=== PATIENT | female | born 1990 | race Caucasian/White ===

== ENCOUNTER → 2018-08-29 | Outpatient (CLI) | payer OTHER ==
[~2018-08-29] MED LIST: ONDA4TAB5 PO; OXYC1TAB23 PO; PREN1TAB11 PO; SING10TA32 PO
[2018-08-29 16:44] LABS: GLUCOSE CHALLENGE TEST 1 HOUR 107 MG/DL (LESS THAN 140)
[2018-08-29 17:10] LABS: RUBELLA IgG QUALITATIVE IMMUNE (IMMUNE)
[2018-08-29 17:15] LABS: BASO % 0.2 % (0.0-1.0); EOS # 0.3 10^3/uL (0.0-0.50); EOS % 2.5 % (0.0-3.0); HEMATOCRIT 38.3 % (36.0-47.0); HEMOGLOBIN 12.7 g/dl (12.0-15.5); LYMPH # 2.2 10^3/uL (1.5-6.5); LYMPH % 16.6 % (24.0-44.0); MEAN CORPUSCULAR HEMOGLOBIN 30.5 pg (27.0-33.0); MEAN CORPUSCULAR HGB CONC 33.2 g/dl (32.0-36.5); MEAN CORPUSCULAR VOLUME 91.8 fl (80.0-96.0); MONO % 7.3 % (0.0-5.0); NEUTROPHILS # 9.5 10^3/uL (1.8-7.7); NEUTROPHILS % 72.6 % (36.0-66.0); PLATELET COUNT, AUTOMATED 202 10^3/uL (150-450); RED BLOOD COUNT 4.17 10^6/uL (4.00-5.40); WHITE BLOOD COUNT 13.1 10^3/uL (4.0-10.0)
[2018-08-29 17:39] LABS: HIV 1&2 SCREEN CENTAUR NEGATIVE (NEGATIVE)
[2018-08-29 18:00] LABS: CHLAMYDIA DNA AMPLIFICATION NEGATIVE (NEGATIVE)
[2018-08-30 11:52] LABS: GC DNA AMPLIFICATION NEGATIVE (NEGATIVE)
[2018-08-31 11:52] LABS: HEPATITIS C VIRUS ABY INDEX 0.1 INDEX (<0.8)
== END ==
LOC: M LRY 10:40
PROVIDERS: ATTEND Advanced Practice Midwife
DX: Z36.89 Encounter for other specified antenatal screening (principal)
CPT/HCPCS: 36415; 82950; 85025; 86762; 86780; 86803; 86850; 87086; 87340; 87389; 87491; 87591; J2790

== ENCOUNTER → 2018-09-02 | Outpatient (CLI) | payer OTHER ==
--- NOTE | 2018-09-02 11:11 | REP ---
OBSTETRIC SONOGRAPHY: HISTORY: Size date discrepancy. Third trimester study. growth exam. FINDINGS: Scanning through the gravid uterus demonstrates a viable single intrauterine gestation in a cephalic lie. heart rate is recorded at 147 beats per minute. Anterior placenta is seen without evidence of previa. Amniotic fluid is subjectively normal. EMMY is normal at 18.4 cm. Umbilical cord is seen draping across shoulders. S/D ratio in the umbilical cord artery by Doppler is normal at 2.77. No anomaly is seen. The following anatomic structures are identified and felt to be unremarkable: cranium, cerebellum posterior fossa, lungs, four-chamber heart with left and right ventricular outflow tract views, diaphragm, left-sided stomach, abdominal wall cord insertion, three-vessel cord, kidneys and bladder. Biometry Chart: BPD 8.8 cm = 35 weeks 3 days HC 32.4 cm = 36 weeks 5 days AC 31.6 cm = 35 weeks 4 days FL 6.9 cm = 35 weeks 3 days HL 5.9 cm = 34 weeks 1 day CD 4.3 cm = 33 weeks 6 days HC/AC ratio normal 1.02 Cephalic index normal 0.75. Estimated weight 2732 grams, 6 pounds 0 ounces, 52nd percentile for 35 weeks 3 days. Imp: Viable single intrauterine gestation at 35 weeks 3 days by today's composite sonographic criteria. DAYTON by today's sonography October 04, 2018. Electronically Signed by Tho Means MD 09/02/2018 07:50 P
== END ==
LOC: M LRY 08:02 → EDUNIT# 08:30
PROVIDERS: ATTEND Advanced Practice Midwife
DX: Z36.9 Encounter for antenatal screening, unspecified (principal); Z3A.35 35 weeks gestation of pregnancy

== ENCOUNTER 2018-09-04 04:17 | Outpatient (CLI) | payer OTHER ==
[~2018-09-04] VITALS: Ht 162.6 cm; Wt 86.4 kg
[2018-09-04 04:41] VITALS: BP 113/64
[2018-09-04] MEDS ORDERED: LACTATED RINGER'S 1000 ML IV STA (05:04)
[2018-09-04] MEDS ORDERED: PROMETHAZINE INJ 25 MG/ML VIAL (J2550) IV ONE (05:15)
[2018-09-04] MEDS ORDERED: MORPHINE 4 MG/ML 1ML VIAL/SYRINGE (J2270) IV ONE (05:15)
[2018-09-04 05:20] LABS: HEMATOCRIT 40.5 % (36.0-47.0); HEMOGLOBIN 13.5 g/dl (12.0-15.5); MEAN CORPUSCULAR HEMOGLOBIN 30.5 pg (27.0-33.0); MEAN CORPUSCULAR HGB CONC 33.3 g/dl (32.0-36.5); MEAN CORPUSCULAR VOLUME 91.6 fl (80.0-96.0); PLATELET COUNT, AUTOMATED 216 10^3/uL (150-450); RED BLOOD COUNT 4.42 10^6/uL (4.00-5.40); WHITE BLOOD COUNT 17.3 10^3/uL (4.0-10.0)
[2018-09-04 05:45] LABS: ALBUMIN 3.1 GM/DL (3.2-5.2); ALT/SGPT 18 U/L (12-78); AMYLASE 80 U/L (25-115); BILIRUBIN,TOTAL 0.5 MG/DL (0.2-1.0); BLOOD UREA NITROGEN 7 MG/DL (7-18); CALCIUM LEVEL 8.7 MG/DL (8.5-10.1); CARBON DIOXIDE LEVEL 22 MEQ/L (21-32); CHLORIDE LEVEL 108 MEQ/L (98-107); CREATININE FOR GFR 0.58 MG/DL (0.55-1.30); GLOMERULAR FILTRATION RATE > 60.0 (>60); GLUCOSE, FASTING 96 MG/DL (70-100); LIPASE 122 U/L (73-393); POTASSIUM SERUM 4.5 MEQ/L (3.5-5.1); SODIUM LEVEL 140 MEQ/L (136-145); TOTAL PROTEIN 7.2 GM/DL (6.4-8.2)
[2018-09-04] MEDS: LR 1,000 ML IV SCH ×3 (06:05→21:04)
[2018-09-04 06:53] LABS: APPEARANCE, URINE CLOUDY (CLEAR); BACTERIA, URINE AUTO 1+ (NEGATIVE); BILIRUBIN, URINE AUTO NEGATIVE (NEGATIVE); BLOOD, URINE BLOOD 2+ (NEGATIVE); CALCIUM OXALATE CRYSTALS SMALL; COLOR, URINE AMBER (YELLOW); GLUCOSE, URINE (UA) AUTO NEGATIVE (NEGATIVE); KETONE, URINE AUTO 1+ mg/dL (NEGATIVE); LEUKOCYTE ESTERASE, URINE AUTO 2+ (NEGATIVE); MUCUS, URINE SMALL (NEGATIVE); NITRITE, URINE AUTO NEGATIVE (NEGATIVE); PROTEIN, URINE AUTO 2+ mg/dL (NEGATIVE); RBC, URINE AUTO 39 /HPF (0-3); SPECIFIC GRAVITY URINE AUTO 1.027 (1.002-1.035); SQUAMOUS EPITHELIAL CELL UR AU 77 /HPF (0-6); WBC, URINE AUTO 68 /HPF (0-3)
[2018-09-04 07:13] VITALS: BP 130/78
[2018-09-04] MEDS ORDERED: PROMETHAZINE INJ 25 MG/ML VIAL (J2550) IV PRN (09:45)
[2018-09-04] MEDS: MORPHINE 4 MG/ML 1ML VIAL/SYRINGE (J2270) IV PRN ×4 (09:58→20:58)
[2018-09-04 10:05] VITALS: BP 109/67
--- NOTE | 2018-09-04 10:49 | REP ---
RENAL ULTRASOUND COMPLETE: 09/04/2018. Clinical history: 35 weeks with right flank pain and hematuria. Findings: No prior study. The right kidney is 12.4 x 6 x 7.6 cm. Shows normal cortical thickness and echogenicity. There is mild hydronephrosis. I do not see proximal hydroureter. There is a 7 mm stone at the junction of the upper pole and interpolar region and a 1 cm stone in the interpolar region. AP diameter of the renal pelvis is 1.5 cm. The left kidney is 10.7 x 5.8 x 6 cm. Its cortical thickness and echogenicity are also normal. There is no hydronephrosis, hydroureter, stone, mass or cyst. No perinephric fluid. Bladder was observed for 5 minutes. A left ureteral jet was seen. No right ureteral jet was observed. The prevoid bladder volume was 32.6 ml and it measured 7.1 x 3.7 x 1.9 cm. Impression: 1. Some mild right hydronephrosis with AP diameter about 1.5 cm of the renal pelvis and a 1 cm stone in the interpolar region, a 0.7 cm stone at junction of interpolar and upper pole regions. I cannot see a dilated ureter proximally. 2. Left kidney and collecting system normal. No stone or hydronephrosis. 3. Bladder not well filled. The left ureteral jet is seen readily. The right ureteral jet is not observed despite looking for 5 minutes. I cannot exclude ureteral stone vs hydronephrosis of . Hematuria may suggest the former. Electronically Signed by Cholo Ross MD 09/04/2018 02:24 P
[2018-09-04 12:53] VITALS: BP 140/90
[2018-09-04 16:18] VITALS: BP 140/74
[2018-09-04 20:51] VITALS: BP 115/71
[2018-09-05 01:01] VITALS: BP 107/68
[2018-09-05 05:19] VITALS: BP 105/61
[2018-09-05] MEDS ORDERED: OXYC1TAB23 PO (06:47)
--- NOTE | 2018-09-05 06:57 | NUR ---
Progress note S: Pain improved, able to tolerate regular diet O: DV=696/61 T=97.7 P=90 NAD Abd: NT, gravid FHT: Category one no CVA tenderness A/P 28 yo at 34 6/7 weeks with symptomatic nephrolithiasis Pt passed fragments of a renal stone, and pain has improved Plan to cancel Nephrostomy tube placement Stop Morphine; start oral oral pain meds as needed Stop Ancef Hep Lock IVF's Plan discharge today Akhil Crabtree MD
--- NOTE | 2018-09-05 07:03 | HPE ---
DATE OF ADMISSION: 09/04/2018 28-year-old 4, para 2-0-1-2 female at 34-5/7 weeks of gestation by last menstrual period (LMP) consistent with 10 week ultrasound, estimated date of confinement (EDC) 10/11/2018, presents with two days of severe constant right sided flank pain that radiates to the right upper quadrant. The pain became progressively worse which brought her to the hospital. She also started vomiting after the pain became intense and had a difficult time keep down solid foods. She keeps some liquids down with difficulty. Pain is 10/10 intensity when it is at its worst. Patient denies vaginal bleeding, has good movement. COURSE: The patient's initial care was through [place], [place]. She transferred to [place] at 33 weeks gestation, 08/23/2018. OBSTETRICAL HISTORY: 1. 2011 miscarriage. 2. September 2012, 40 week vaginal delivery, 7 pound 2 ounce male . 3. October 2016, 36 week vaginal delivery, 8 pound 9 ounce male infant. was complicated by premature rupture of membranes. MEDICAL HISTORY: 1. Mild asthma. 2. Lactose intolerance. SURGERIES: [place] teeth removed. ALLERGIES: 1. CODEINE which causes nausea. SOCIAL HISTORY: The patient is . She denies cigarettes, alcohol or drug use. She lives at [place]. FAMILY HISTORY: Noncontributory. PHYSICAL EXAMINATION: Blood pressure 128/74, pulse 84, afebrile. She appears significantly uncomfortable, is unable to lie flat. Head and neck exam is normal. Lungs clear. Heart regular rate and rhythm. Abdomen is nontender, gravid. Negative Forte's sign. Moderate tenderness in the right CVA area. heart tones category 1, contractions none. Extremities nontender. LABS: Revealed a white blood count of 17.1. Metabolic profile normal. Normal amylase and lipase. Urinalysis reveals 2+ blood. ASSESSMENT: 28-year-old G4, P2-0-1-2 female at 34-5/7 weeks gestation by LMP consistent with 10 week ultrasound who presents with right flank pain and hematuria, suspicious for possible renal stone. PLAN: Admit for pain management as well as nausea management. Will obtain renal ultrasound and assess for stones. [facility]
[2018-09-05] MEDS ORDERED: PERCOCET 5MG/325MG TAB PO PRN (07:15)
--- NOTE | 2018-09-05 07:51 | IPNPDOC ---
Text Note Date of Service The patient was seen on 09/05/18. NOTE Subjective: Patient is a 28-year-old female who presented with right sided flank pain that started on 09/02/18. She is a with an DAYTON of 10/11/18. She reports she is feeling better and has no pain currently since passing a stone last night. She has been able to keep food down at this point and denies any nausea. Objective: Vitals: see below. FHR 120, moderate variability, positive acceleration, no decelerations. Contractions: occasional. Assessment: IUP at 34.6 weeks gestation, renal calculi Plan: Patient to be discharged to home. Dr. Crabtree sent Percocet to pharmacy. She has an appointment on Wednesday09/07/18. Reviewed acces to care, kick count, labor signs, and danger signs to report. VS,Fishbone, I+O VS, Fishbone, I+O Vital Signs Date Time Temp Pulse Resp B/P (MAP) Pulse Ox O2 Delivery O2 Flow Rate FiO2 09/05/18 05:19 97.7 90 18 105/61 (76) 09/04/18 16:18 Room Air I&O- Last 24 Hours up to 6 AM 09/05/18 06:00 Intake Total 1420 ml Output Total 2500 ml Balance -1080 ml PENNIE SAHNI CNM Sep 05, 2018 07:51
[2018-09-05] MEDS ORDERED: ONDA4TAB5 PO (08:07)
[2018-09-05] MEDS ORDERED: ONDANSETRON 4 MG TAB (S0181) PO ONE (08:15)
[2018-09-05] MEDS ORDERED: DOCUSATE SODIUM 100 MG CAP PO SCH (09:00)
[2018-09-05 09:24] VITALS: BP 108/65
--- NOTE | 2018-09-05 18:18 | CR ---
DATE OF CONSULTATION: 09/04/2018 REASON FOR CONSULTATION: Right flank pain with nausea, vomiting, chills, low grade temperature and elevated white blood count in a female. HISTORY OF PRESENT ILLNESS: The patient is a 28-year-old, 34-1/2 week female who comes in with severe right-sided flank pain since Hardik night. Her T-max has been 99.1 without chills. She has had nausea and vomiting. An ultrasound showed several right-sided stones and what looks like a 1.5 cm right UPJ stone with mild right hydronephrosis. Her white blood count is 17.3. A urinalysis shows 68 white blood cells and 39 red blood cells per high-power field. She has had some gross hematuria. She denies any previous history of kidney stones. She denies any problems with recurrent urinary tract infections, but it has been uncomfortable to urinate recently. PAST MEDICAL HISTORY: Chronic back pain and asthma. PAST SURGICAL HISTORY: No surgery. MEDICATIONS: Singulair ALLERGIES: CODEINE. FAMILY HISTORY: Noncontributory. SOCIAL HISTORY: She has two sons at home. She is . She does not smoke cigarettes or drink alcohol appreciably. PHYSICAL EXAMINATION: Her T-max was 99.5. Her blood pressure is 140/74 and her pulse is 94. Her head is normocephalic, atraumatic. She is in a hospital bed, doubled over in pain with a pillow over her and she has difficulty moving because of the pain. She is alert and oriented x3. Her head is normocephalic atraumatic. Her eyes are pupils equal, round, and reactive to light and accommodation. Her neck is supple. Her trachea is midline. She has no significant supraclavicular or cervical adenopathy. Her heart has a regular rate and rhythm and her lungs are clear to auscultation and percussion. She does have significant right costovertebral angle (CVA) tenderness and even some mild left costovertebral angle (CVA) tenderness. Her abdomen is gravid and she has tenderness throughout. Her extremities show no cyanosis, clubbing or edema. LABORATORY DATA: Her white blood count is 17.3 up from 13.1 on 08/29/2018. Her hemoglobin and hematocrit are 13.5/40.5. Her BUN is 7 and her creatinine is 0.58. A microscopic urinalysis shows 68 white blood cells and 39 red blood cells per high-power field. A renal ultrasound done on 08/2018 shows mild right hydronephrosis with a 1 cm stone in the interpolar region and a 7 mm stone and what looks like a 15 mm stone at the renal pelvis. The right ureteral jet was not observed. DISCUSSION: I discussed these findings with Dr. Crabtree, the patient and the patient's in the hospital today. I recommend a right nephrostomy tube placement as soon as possible. Unfortunately, we do not have interventional radiology search engine optimization analyst and we even discussed the possibility of transferring her to [place] for placement of the tube, but today we had at least one foot of snow and the roads are quite icy. Since at this point she is clinically stable, except for pain, I would think that she can wait till tomorrow morning to have the nephrostomy tube placed as long as she does not become clinically more unstable. We discussed that once delivery is done, then we will probably do an antegrade nephrostogram to further delineate the stone and discuss further treatment options at that time. IMPRESSION: 1. Severe right flank pain and a 34-1/2-week female found on the ultrasound to have mild hydronephrosis and multiple stones, most likely with a 15 mm right ureteral pelvic junction stone or renal pelvic stone in a patient with an elevated white blood count, urinary tract infection, and low grade fever. PLAN: 1. I recommend a right nephrostomy tube as soon as possible. 2. Continue supportive care with pain control and antibiotics until the final urine culture comes back. 3. If the patient becomes clinically worse, then we may want to consider transfer to [place]; but because the weather was so poor today, the risks versus the benefits was that she can wait until tomorrow morning to have the nephrostomy tube placed.
== END 2018-09-05 09:45 | disposition home or self-care (01) ==
LOC: M LDO 04:17
PROVIDERS: ATTEND Specialist
DX: O26.833 Pregnancy related renal disease, third trimester (principal); O26.893 Other specified pregnancy related conditions, third trimester; R10.9 Unspecified abdominal pain; O23.43 Unspecified infection of urinary tract in pregnancy, third trimester; Z3A.34 34 weeks gestation of pregnancy
CPT/HCPCS: 59025; 76775; 80053; 81001; 82150; 83690; 85027; 87081; 87186; 96365; 96374; 96375; 96376; G0378; G0463; J0690; J2270

== ENCOUNTER 2018-09-07 23:32 | Outpatient (CLI) | payer OTHER ==
[~2018-09-07] VITALS: Ht 165.1 cm; Wt 90.7 kg
[~2018-09-07 23:32] MED LIST changes: -PREN1TAB11 PO; -SING10TA32 PO
[2018-09-08] VITALS (14 sets, daily range): BP systolic 86–121; BP diastolic 47–69
[2018-09-08] MEDS ORDERED: PREN1TAB11 PO (00:08)
[2018-09-08] MEDS ORDERED: SING10TA32 PO (00:09)
[2018-09-08] MEDS ORDERED: LACTATED RINGER'S 1000 ML IV ONE (00:15)
[2018-09-08] MEDS: PROMETHAZINE INJ 25 MG/ML VIAL (J2550) IV PRN ×2 (00:57→09:30)
[2018-09-08] MEDS: MORPHINE 4 MG/ML 1ML VIAL/SYRINGE (J2270) IV PRN ×2 (00:58→09:29)
[2018-09-08] MEDS: LR 1,000 ML IV SCH ×3 (02:37→20:40)
--- NOTE | 2018-09-08 04:55 | IPN ---
DATE: 09/07/2018 Rissa is a 28-year-old 4, para 2-0-1-2 at 35-2/7 weeks gestation with an estimated date of confinement (EDC) 10/11/2018 based on last menstrual period. She presents to labor and delivery today with severe right-sided flank pain that radiates to the abdomen. She denies vaginal bleeding and leakage of fluid. She denies painful contractions and the fetus has been active. Her care was initiated as a transfer in at 33 weeks gestation. Her course recently complicated by the diagnosis of renal calculi and mild right hydronephrosis. She was seen on 09/04/2018 for same complaint of right flank pain and hematuria. She did have a urology consult that suggested the need for a nephrostomy tube. The nephrostomy tube was not placed because the patient's condition significantly improved and she was discharged home in minimal to no pain. She reports that tonight at approximately 1730 the pain became excruciating. She did take two Percocet and it was unresolved after a couple hours thus her presentation. OBSTETRICAL HISTORY: September 2012: 40 weeks gestation, 7 pounds 2 ounces male vaginal delivery. October 2016: 36 weeks gestation, 8 pounds 9 ounces male vaginal delivery, premature rupture of the membranes (PPROM). A spontaneous miscarriage times one. OBSTETRICAL LABORATORIES: A negative, antibody screen negative, rubella immune, [facility] ([facility]) nonreactive. Urine culture no growth. Hepatitis B surface antigen negative, human immunodeficiency virus (HIV) negative. Hep C antibody nonreactive. Gonorrhea and chlamydia negative. Her group B Streptococcus (GBS) is positive. PAST MEDICAL HISTORY: Asthma. She is managed with Singulair and as needed use of albuterol inhaler. SURGERIES: Dental FAMILY HISTORY: Epilepsy. Hypertension. SOCIAL HISTORY The patient is . Her is at bedside and supportive. She is a nonsmoker. Denies alcohol and drug use. She has a remote history of childhood varicella. She does deny a history of sexually-transmitted diseases and denies history of abuse physical, sexual and emotional. ALLERGIES: LACTOSE, CODEINE which is actually a sensitivity. She has nausea and dizziness from codeine. CURRENT MEDICATIONS: - Percocet 05/325 - 1 to 2 tablets by mouth every 6 hours as needed for pain - Ventolin inhaler - Singulair 10 mg OBJECTIVE: Temperature 98.8. Pulse 97, respirations 18, blood pressure is 121/69. She does appear moderately uncomfortable. The fetus is active. heart rate is 150 with moderate variability, positive accelerations, no decelerations. Contractions about every 4 minutes, palpate mild. Sterile vaginal exam is deferred at this time. ASSESSMENT: 1. 35 weeks-09/22. heart rate category 1. 2. Right flank pain, renal calculi known. PLAN: Observation status, intravenous (IV) fluid bolus, IV pain medications, antinausea medications. We will start Flomax to encourage passage of renal calculi. May consider placement of nephrostomy tomorrow.
[2018-09-08] MEDS ORDERED: TAMSULOSIN 0.4 MG CAP PO SCH (09:00)
--- NOTE | 2018-09-08 09:08 | REP ---
URINARY TRACT SONOGRAPHY: HISTORY: Renal calculi. Severe flank pain. Comparison sonography September 04, 2018 showed intrarenal calculi and mild right hydronephrosis in this patient at 36 weeks gestation. FINDINGS: heart rate is recorded at the 150 beats per minute during the examination. The bladder is largely empty. There is moderate right-sided hydronephrosis today increased from the prior study. A hydroureter is visible at the level of the lower pole. AP dimension of the renal pelvis is 1.6 cm today, previously reported as 1.5 cm. On today's images we are not able to identify the reflective foci to represent intrarenal calculi. No left-sided hydronephrosis is seen. The left renal dimensions of 13.8 x 5.4 x 5.9 cm. Right kidney measures 14.9 x 7.8 x 8.3 cm. IMPRESSION: Moderate hydronephrosis on the right, increased from September 04, 2018. Electronically Signed by Tho Means MD 09/08/2018 11:26 A
[2018-09-08 10:09] LABS: HEMATOCRIT 34.7 % (36.0-47.0); HEMOGLOBIN 11.6 g/dl (12.0-15.5); MEAN CORPUSCULAR HEMOGLOBIN 31.1 pg (27.0-33.0); MEAN CORPUSCULAR HGB CONC 33.4 g/dl (32.0-36.5); PLATELET COUNT, AUTOMATED 182 10^3/uL (150-450); RED BLOOD COUNT 3.73 10^6/uL (4.00-5.40); WHITE BLOOD COUNT 14.5 10^3/uL (4.0-10.0)
[2018-09-08] MEDS ORDERED: cefTRIAXone SOD 1 GM in D5W MINI-BAG PLUS 50 ML IV ONE (13:00)
[2018-09-08 14:13] LABS: APPEARANCE, URINE HAZY (CLEAR); BACTERIA, URINE AUTO NEGATIVE (NEGATIVE); BILIRUBIN, URINE AUTO NEGATIVE (NEGATIVE); BLOOD, URINE BLOOD NEGATIVE (NEGATIVE); COLOR, URINE YELLOW (YELLOW); GLUCOSE, URINE (UA) AUTO NEGATIVE (NEGATIVE); KETONE, URINE AUTO NEGATIVE (NEGATIVE); LEUKOCYTE ESTERASE, URINE AUTO 1+ (NEGATIVE); MUCUS, URINE SMALL (NEGATIVE); NITRITE, URINE AUTO NEGATIVE (NEGATIVE); PROTEIN, URINE AUTO NEGATIVE (NEGATIVE); RBC, URINE AUTO 6 /HPF (0-3); SPECIFIC GRAVITY URINE AUTO 1.011 (1.002-1.035); SQUAMOUS EPITHELIAL CELL UR AU 23 /HPF (0-6); TRANSITIONAL EPITHELIAL AUTO 1 /HPF; UROBILINOGEN, URINE AUTO 0.2 mg/dL (0.0-2.0); WBC, URINE AUTO 7 /HPF (0-3)
[2018-09-08] MEDS ORDERED: LIDOCAINE 1% MDV 20ML VIAL As Ordered ONE (15:34)
[2018-09-08] MEDS ORDERED: ISOVUE-300 61% 50ML VIAL (Q9967) As Ordered ONE (15:34)
[2018-09-08] MEDS ORDERED: fentaNYL 100 MCG/2 ML INJECTION (J3010) As Ordered ONE (16:15)
[2018-09-08] MEDS ORDERED: PERCOCET 5MG/325MG TAB As Ordered ONE (17:27)
[2018-09-08] MEDS ORDERED: METOCLOPRAMIDE INJ 10MG/2ML VIAL (J2765) IV PRN (17:30)
[2018-09-08] MEDS ORDERED: fentaNYL 100 MCG/2 ML INJECTION (J3010) IV PRN (17:30)
[2018-09-08] MEDS ORDERED: PERCOCET 5MG/325MG TAB PO PRN ×3 (17:30→19:30)
[2018-09-08] MEDS ORDERED: LR 1,000 ML IV SCH (17:30)
[2018-09-08] MEDS ORDERED: ONDANSETRON 4MG/2ML VIAL (J2405) IV PRN (17:30)
[2018-09-09 02:46] VITALS: BP 112/68
[2018-09-09 06:21] VITALS: BP 96/52
--- NOTE | 2018-09-09 08:31 | IPN ---
DATE OF SERVICE: 09/08/2018 SUBJECTIVE: Mrs. Acosta is a 28-year-old, 4, para 2, at 35 weeks 4 days gestation, who presented on 09/07/2018 with right flank pain that had worsened. She had a previous renal ultrasound that demonstrated multiple renal stones; the largest 1.5 cm. Yesterday, she had a repeat imaging showing moderate hydronephrosis on the right kidney. She underwent nephrostomy tube placement for the right kidney, which has since relieved her pain. She has been able to tolerate oral. She reports active movement. Denies any regular contractions, vaginal bleeding or leakage of fluid. OBJECTIVE: On physical exam, her vital signs are stable. She is afebrile. General appearance is well-appearing, no acute distress. Her abdomen is gravid, nontender. ASSESSMENT: This is a 28-year-old, 4, para 2, at 35 and 4 gestation, right renal calculi, status post nephrostomy, currently stable with improvement of her pain. PLAN: 1. To discharge home. Will place on Keflex prophylactically. 2. labor precautions as well as kick count instructions. 3. She will followup in the office next week. 4. CT scan immediately .
--- NOTE | 2018-09-09 16:34 | REP ---
RIGHT NEPHROSTOMY DRAINAGE CATHETER INSERTION The procedure was performed under the direct supervision of Dr. Means. The risks and benefits of the procedure were explained to the patient and informed consent was obtained. Anesthesia was present throughout the procedure for sedation and pain control. The patient is 36 weeks . The abdomen was wrapped in a lead apron and as low as possible radiation dose was administered. Anesthesia: 9 ml of 1% lidocaine Estimated blood loss: Less than 2 ml Contrast: 6 ml of Isovue 300 Fluoroscopy time: 1.5 minutes The patient was brought into the interventional suite and placed on the table in the prone oblique position. A time out procedure was performed. The right renal collecting system was localized using ultrasound guidance. The skin was prepped and draped in a sterile fashion. 1% lidocaine was used as a local anesthetic. Using ultrasound guidance a 21-gauge needle was inserted and advanced into the kadie. 5 ml of urine was collected as a specimen. A nephrostogram was performed. A 0.018 guide wire was inserted and advanced into the renal pelvis. The needle was removed and a 4.5 [place] dilator and sheath was inserted over the guide wire. The guidewire was removed and the 0.035 guidewire was inserted and advanced down the ureter. The sheath was removed and an 8-[place] Skater APDL catheter was inserted over the guide wire. The loop of the catheter was formed in the renal pelvis. Another nephrostogram was performed and the image demonstrates the catheter to be well placed in the renal pelvis. The catheter was affixed to the skin and a sterile dressing was applied. The catheter was connected to a gravity drainage bag. The patient will return in 8 to 10 weeks for exchange of the right nephrostomy drainage catheter or sooner if needed. Reviewed by DANNY Oviedo 09/09/2018 04:07 P Electronically Signed by Tho Means MD 09/09/2018 04:24 P
== END 2018-09-08 17:51 | disposition home or self-care (01) ==
LOC: M LDO 23:32
PROVIDERS: ATTEND Advanced Practice Midwife
DX: O26.893 Other specified pregnancy related conditions, third trimester (principal); N13.2 Hydronephrosis with renal and ureteral calculous obstruction; R10.9 Unspecified abdominal pain; Z3A.36 36 weeks gestation of pregnancy
CPT/HCPCS: 36415; 50437; 59025; 76000; 76775; 76942; 81001; 85027; 87075; 87086; 96374; 96375; 96376; C1729; C1894; G0378; G0463; J0696; J2270; J3010; Q9967

== ENCOUNTER → 2018-09-14 | Outpatient (REF) | payer OTHER ==
[~2018-09-14] MED LIST changes: +PREN1TAB11 PO; +SING10TA32 PO
== END ==
LOC: M LAB REF 13:42
PROVIDERS: ATTEND Advanced Practice Midwife
DX: Z34.83 Encounter for supervision of other normal pregnancy, third trimester (principal)

== ENCOUNTER 2018-09-29 11:31 | Emergency (ER) | payer OTHER ==
[~2018-09-29] VITALS: Ht 165.1 cm; Wt 90.0 kg
[2018-09-29 11:32] VITALS: BP 116/72
[2018-09-29] MEDS ORDERED: PROAAER10 (11:38)
[2018-09-29] MEDS ORDERED: CEPH500C (11:38)
[2018-09-29] MEDS ORDERED: FLON1SPR NARES (12:11)
== END 2018-09-29 12:19 | disposition home or self-care (01) ==
LOC: M ED 11:31
DX: O99.89 Other specified diseases and conditions complicating pregnancy, childbirth and the puerperium (principal); H65.02 Acute serous otitis media, left ear; Z79.899 Other long term (current) drug therapy; Z88.5 Allergy status to narcotic agent; E73.9 Lactose intolerance, unspecified; Z3A.38 38 weeks gestation of pregnancy

== ENCOUNTER 2018-10-02 16:15 | Inpatient (IN) | payer OTHER ==
[~2018-10-02] VITALS: Ht 165.1 cm; Wt 86.9 kg
[2018-10-02] VITALS (17 sets, daily range): BP systolic 100–124; BP diastolic 56–82
[~2018-10-02 16:15] MED LIST changes: +CEPH500C; +FLON1SPR NARES; +PROAAER10
[2018-10-02] MEDS ORDERED: PENICILLIN G POTASSIUM IV 5 MU in D5W MINI-BAG PLUS 100 ML IV STA (16:31)
[2018-10-02 17:17] LABS: HEMATOCRIT 38.6 % (36.0-47.0); HEMOGLOBIN 12.8 g/dl (12.0-15.5); MEAN CORPUSCULAR HEMOGLOBIN 30.2 pg (27.0-33.0); MEAN CORPUSCULAR HGB CONC 33.2 g/dl (32.0-36.5); PLATELET COUNT, AUTOMATED 301 10^3/uL (150-450); RED BLOOD COUNT 4.24 10^6/uL (4.00-5.40)
[2018-10-02] MEDS ORDERED: ACET65SU PR (17:59)
[2018-10-02] MEDS ORDERED: LR 1,000 ML IV SCH (19:56)
[2018-10-02] MEDS ORDERED: OXYTOCIN DRIP 30 UNITS in APPROPRIATE DILUENT 1 EA IV SCH (20:00)
[2018-10-02] MEDS ORDERED: FENTANYL 2MCG/ML ROPIVACAINE 0.2% IN 0.9% NACL 100ML IVBAG As Ordered ONE (20:03)
--- NOTE | 2018-10-02 20:32 | HPEPDOC ---
Obstetrical History & Physical General Date of Admission Oct 02, 2018 at 16:15 Primary Care Physician: PENNIE SAHNI CNM History of Present Illness Patient is a 28-year-old female who is now a at 38.5 weeks gestation with an DAYTON of 10/11/18 based off of her LMP. She initiated care with [facility] and transferred care to [facility] at 33 weeks gestation. She had no care from 20 weeks to 33 weeks gestation. Her has been complicated by asthma, a history of PPROM at 36 weeks with her last baby, bilateral renal calculi with a right nephrostomy tube placed, and GBS bacteriuria. She presents to labor and delivery for an induction of labor. Chief Complaint: Induction of labor, Other (bilateral renal calculi with right nephrostomy tube) Information Provided By: Patient Age: 28 : 4 Term: 2 Pre-term: 0 Abortions: 1 Livin Care Care: Limited Care Number of Visits: 7 Dating Final EDC: Oct 11, 2018 Final EDC by: LMP LMP: January 04, 2018 EGA at Admission: 38.5 Antepartum Course Diagnos(e)s bilateral renal calculi with right nephrostomy tube placement during GBS bacteriuria no care from 20 weeks gestation until 33 weeks gestation Height (inches): 65 Pre- weight (lbs.): 170 Admission Weight (lbs.): 199 Change in Weight (lbs.): 29 Past Medical History Past Obstetrical History #1: Past Obstetrical History: Primgravida Gestation: 40 Type of Delivery: Spontaneous Vaginal Del. (September 2012) Sex of Infant: Male (7 lbs 2 oz) Complications: No Past Obstetrical History #2: Past Obstetrical History: Multigravida Gestation: 36 Type of Delivery: Spontaneous Vaginal Del. (October 2016) Sex of Infant: Male (8 lbs 9 oz) Complications: Yes (PPROM) Past Medical History Medical History Asthma renal calculi bilaterally Surgical History: Other (dental surgery; nephrostomy) Family History Significant Family History: Hypertension, Other (epilepsy) Social History Marital Status: Family situation: Spouse/partner home Psychosocial History: No pertinent psych hx * Smoker: non-smoker Alcohol: Denies Drugs: denies Abuse Violence Screening Have you been hit/kicked/slapp: No Have you been sexually assault: No Allergies Coded Allergies: Lactose (Verified Allergy, Intermediate, LACTOSE INTOLERANT, 10/02/18) Codeine (Verified Adverse Reaction, Mild, N&V, 10/02/18) Medications Scheduled Fluticasone Propionate (Flonase Allergy Relief) 50 Mcg/Act Spr, 2 SPRAY NARES DAILY Montelukast Sodium (Singulair) 10 Mg Tab, 10 MG PO DAILY Multivitamins/ ( Vitamin 27-0.8 mg) 1 Tab Tab, 1 TAB PO DAILY Scheduled PRN Oxycodone/Acetaminophen (Oxycodone/Acetaminophen 5-325 mg) 1 Tab Tab, 1-2 TAB PO Q6HP PRN for pain Miscellaneous Medications Acetaminophen (Acetaminophen) 650 Mg Supp, [address] Albuterol Sulfate (Proair Hfa) 108 Mcg/Act Aer Cephalexin Monohydrate (Cephalexin) 500 Mg Cap Physical Examination Physical Examination GENERAL: Alert and oriented times three. BREAST: . ABDOMEN: Gravid and non-tender to touch. FETUS: Is vertex (VTX) by sterile vaginal examination (SVE), fetus is vertex ( VTX) by [place]. HEART RATE: Regular rate and rhythm. LUNGS: Clear to auscultation (CTA). EXTREMITIES: No edema. No clonus. Deep tendon reflexes (DTRs) + 2. Vital Signs/I&O Vital Signs Date Time Temp Pulse Resp B/P (MAP) Pulse Ox O2 Delivery O2 Flow Rate FiO2 10/02/18 17:34 98.2 97 18 124/74 (91) 96 Laboratory Data 24H LABS Laboratory Tests 2 10/02/18 16:37: Serology Scanned Report Hepatitis B Testing 10/02/18 17:11: Nucleated Red Blood Cells % (auto) 0.0 CBC/BMP Laboratory Tests 10/02/18 17:11 Red Blood Count 4.24, Mean Corpuscular Volume 91.0, Mean Corpuscular Hemoglobin 30.2, Mean Corpuscular Hemoglobin Concent 33.2, Red Cell Distribution Width 13.6 Urine Culture: Other (GBS) Pertinent Laboratoy Data Blood Type: A- RBC Antibody Screen: Negative HIV: Negative Hepatitis B: Negative Hepatitis C: Negative Rapid Plasma Reagin: Nonreactive Rubella: Immune Chlamydia/Gonorrhea: Negative Group B Streptococcus: Positive Anatomy Ultrasound Ultrasound Date: Sep 02, 2018 Placenta Location: Anterior Placenta Previa: No Estimated Weight (grams): 2732 Vaginal Examination Dilation: 5 cm Effacement: other (75%) Station: -2 Cervical Consistency: Soft Cervical Position: Anterior Presentation: Cephalic presentation Position: Vertex (occiput) Assessment Heart Rate (FHR): 140 Variability: Moderate Accelerations: Positive Decelerations: None Tocometer Contractions: Yes Frequency: irregular Multi-drug resistant Organism: No history of MDRO Assessment/Plan Assessment IUP at 38.5 weeks gestation GBS positive bacteriuria bilateral renal calculi with right nephrostomy tube Category I FHR tracing Plan Admit to L&D. Dr. Crabtree is aware patient is scheduled for induction. OOB ad brianda. Diet: clears. Group B Streptococcus positive. Antibiotic treatment started per order. Labs and intravenous (IV) per unit protocol. Counseled on Pitocin induction of labor. To start IV Pitocin 3 hours after 1st dose of antibiotic started. Lactated Ringers (LR): Bolus 800 mL, then at 125 mL/hr. Anesthesia consult per patient's request. Anticipate cervical change and . PENNIE SAHNI CNM Oct 02, 2018 20:32
[2018-10-02] MEDS: PENICILLIN G POTASSIUM IV 2.5 MU in APPROPRIATE DILUENT 1 EA IV SCH (21:08)
[2018-10-02] MEDS ORDERED: ePHEDrine SULFATE 25 MG/5 ML(5MG/ML) SYRINGE IV PRN (22:45)
[2018-10-02] MEDS ORDERED: ONDANSETRON 4MG/2ML VIAL (J2405) IV PRN (22:45)
[2018-10-02] MEDS ORDERED: REFRIGERATOR IV KEYS XX PRN (22:45)
[2018-10-02] MEDS ORDERED: NALOXONE INJ 0.4 MG/1 ML VIAL (J2310) IV PRN (22:45)
[2018-10-02] MEDS ORDERED: diphenhydrAMINE INJ 50MG/ML VIAL (J1200) IV PRN (22:45)
[2018-10-02] MEDS ORDERED: FENTANYL/ROPIVACAINE/NACL BAG 100 ML EPIDURAL SCH (22:45)
[2018-10-02] MEDS ORDERED: EPIDURAL/PCA KEYS XX PRN (22:45)
[2018-10-02] MEDS ORDERED: EPIDURAL COMMENT XX SCH (22:45)
[2018-10-03 00:08] VITALS: BP 98/61
[2018-10-03 00:38] VITALS: BP 100/67
--- NOTE | 2018-10-03 00:38 | IPNPDOC ---
Obstetrical Progress Note Date of Service Oct 03, 2018 Subjective Patient reports she is doing well with her epidural. Objective Vital Signs Date Time Temp Pulse Resp B/P (MAP) Pulse Ox O2 Delivery O2 Flow Rate FiO2 10/02/18 22:37 98.3 108 123/74 (90) 10/02/18 17:34 18 96 Assessment Heart Rate (FHR): 155 Variability: Minimal to moderate Accelerations: None Decelerations: None Heart Rate Tracing: Category II Tocometer Contractions: Yes Frequency: every 1-3 min. Sterile Vaginal Examination Dilation: 6 cm Effacement (%): other (75%) Station: -2 Cervical Consistency: Soft Cervical Position: Anterior Postion/Presentation: Cephalic presentation Assessment and Plan Status: Reassuring Group B Streptococcus: Positive Anticipate: Vaginal Delivery Additional Comments Pitocin at 4 mu/min. Nurse to decrease to 1 mu/min. AROM to a large amount of clear fluid-polyhydramnios. FSE placed. Anticipate cervical change and . PENNIE SAHNI CNM Oct 03, 2018 00:38
--- NOTE | 2018-10-03 00:57 | IPNPDOC ---
Obstetrical Progress Note Date of Service Oct 03, 2018 Subjective Patient comfortable with epidural. Objective Vital Signs Date Time Temp Pulse Resp B/P (MAP) Pulse Ox O2 Delivery O2 Flow Rate FiO2 10/02/18 22:37 98.3 108 123/74 (90) 10/02/18 17:34 18 96 Assessment Heart Rate (FHR): 150 Variability: Moderate Accelerations: Positive Decelerations: None Heart Rate Tracing: Category I Tocometer Contractions: Yes Frequency: regular, other (3 minutes) Assessment and Plan Status: Reassuring Anticipate: Vaginal Delivery PENNIE SAHNI CNM Oct 03, 2018 00:57
[2018-10-03] MEDS: PENICILLIN G POTASSIUM IV 2.5 MU in APPROPRIATE DILUENT 1 EA IV SCH (01:15)
[2018-10-03] MEDS ORDERED: OXYTOCIN DRIP 30 UNITS in APPROPRIATE DILUENT 1 EA IV SCH (02:24)
[2018-10-03] MEDS ORDERED: METHYLERGONOVINE MALEATE 0.2 MG TAB PO PRN (02:30)
[2018-10-03] MEDS ORDERED: RHOGAM 300 MCG (1500 IU) INJ (J2790) IM SCH (02:30)
[2018-10-03] MEDS ORDERED: MEASLES,MUMPS,RUBELLA VACCINE INJ (MMR-II) (90707) SC SCH (02:30)
[2018-10-03] MEDS ORDERED: DOCUSATE SODIUM 100 MG CAP PO PRN (02:30)
[2018-10-03] MEDS ORDERED: DIBUCAINE 1% OINTMENT 30GM TOP PRN (02:30)
--- NOTE | 2018-10-03 02:36 | DNPDOC ---
[facility] Delivery Note Delivery Note DATE OF DELIVERY: 10/03/18 AT 0149 PREDELIVERY DIAGNOSIS: 38-6/7 weeks' gestation. POST DELIVERY DIAGNOSIS: Delivered. PROCEDURE: Spontaneous vaginal delivery. OCEANOGRAPHER ASSISTANT: Pennie Veloz CNM, ISAAC ANESTHESIA: epidural. ESTIMATED BLOOD LOSS: 350 mL. FINDINGS: 8 pounds 9 ounces; 3880 grams; female , Score 9/9. DELIVERY SUMMARY: Patient is a 28-year-old female who presented for IOL due to bilateral renal calculi and a right nephrostomy tube. She was 5 cm dilated upon arrival to unit. She received IV Pitocin for an epidural and an epidural for pain management. The patient progressed to fully dilated at 0137 and pushed to a vaginal delivery at 0149 in the LUANN position with restitution to ROT. The anterior shoulder delivered with ease and the corpus immediately followed. The FOB assisted in delivery. The baby was placed on the maternal abdomen [id number] active and crying with stimulation. The cord was clamped x2 after 3 minutes and cut by the FOB. A 3-vessel cord was noted. The placenta delivered spontaneously and intact. Uterine hemostasis was achieved via rapid infusion of IV Pitocin and fundal massage. The vagina and perineum were inspected and found to be intact. The mom plans on her . They are unsure on the name for their . Both mom and baby are in stable condition. PENNIE VELOZ CNM Oct 03, 2018 02:36
[2018-10-03 06:46] VITALS: BP 100/64
[2018-10-03] MEDS ORDERED: AZITHROMYCIN 250 MG TAB PO ONE (09:00)
[2018-10-03] MEDS: PRENATAL VITAMINS CHEWABLE TABLET PO SCH (10:18)
[2018-10-03] MEDS: IBUPROFEN 800 MG TAB PO PRN ×2 (10:19→20:14)
[2018-10-03] MEDS: ACETAMINOPHEN 500 MG TAB PO PRN (14:11)
--- NOTE | 2018-10-03 16:36 | IPNPDOC ---
Text Note Date of Service The patient was seen on 10/03/18. NOTE Spoke with Urology. They would like to see Jackie in the office prior to any further treatment Pt and partner aware. Will call to make appt JIMMY VS,Fishbone, I+O VS, Fishbone, I+O Laboratory Tests 10/02/18 17:11 Red Blood Count 4.24, Mean Corpuscular Volume 91.0, Mean Corpuscular Hemoglobin 30.2, Mean Corpuscular Hemoglobin Concent 33.2, Red Cell Distribution Width 13.6 Vital Signs Date Time Temp Pulse Resp B/P (MAP) Pulse Ox O2 Delivery O2 Flow Rate FiO2 10/03/18 06:46 97.4 98 16 100/64 (76) 10/02/18 17:34 96 I&O- Last 24 Hours up to 6 AM 10/03/18 05:59 Intake Total 1000 ml Output Total 350 ml Balance 650 ml Yasmine Gracia CNM Oct 03, 2018 16:36
[2018-10-03 18:00] VITALS: BP 104/64
[2018-10-03] MEDS ORDERED: AZIT-12 PO (20:57)
[2018-10-04] MEDS: ACETAMINOPHEN 500 MG TAB PO PRN (01:45)
[2018-10-04 06:13] VITALS: BP 110/72
[2018-10-04] MEDS: PRENATAL VITAMINS CHEWABLE TABLET PO SCH (08:37)
[2018-10-04] MEDS: IBUPROFEN 800 MG TAB PO PRN (08:38)
[2018-10-04] MEDS ORDERED: AZITHROMYCIN 250 MG TAB PO SCH (09:00)
[2018-10-04] MEDS ORDERED: MAPA500T2 PO (11:24)
[2018-10-04] MEDS ORDERED: IBUP-1114 PO (11:24)
== END 2018-10-04 12:55 | disposition home or self-care (01) | DRG 807 ==
LOC: M LDI 16:15 → M OBS 10-03 03:29
PROVIDERS: ADMIT Advanced Practice Midwife; ATTEND Advanced Practice Midwife
PROC: 3E033VJ Introduction of Other Hormone into Peripheral Vein, Percutaneous Approach (ICD-10-PCS; 2018-10-02)
PROC: 10E0XZZ Delivery of Products of Conception, External Approach (ICD-10-PCS; principal; 2018-10-03)
PROC: 10907ZC Drainage of Amniotic Fluid, Therapeutic from Products of Conception, Via Natural or Artificial Opening (ICD-10-PCS; 2018-10-03)
DX: O99.89 Other specified diseases and conditions complicating pregnancy, childbirth and the puerperium (principal); Z37.0 Single live birth; Z3A.38 38 weeks gestation of pregnancy; N20.0 Calculus of kidney; Z93.6 Other artificial openings of urinary tract status; O40.3XX0 Polyhydramnios, third trimester, not applicable or unspecified; O99.824 Streptococcus B carrier state complicating childbirth

== ENCOUNTER → 2018-10-07 | Outpatient (CLI) | payer OTHER ==
[~2018-10-07] MED LIST changes: +ACET65SU PR; +AZIT-12 PO; +IBUP-1114 PO; +MAPA500T2 PO
--- NOTE | 2018-10-07 13:57 | REP ---
CT of the abdomen pelvis for renal calculus: There are no comparisons. The study is performed without IV and oral contrast. There is a right percutaneous nephrostomy. There is no right renal calculus. However, the right ureter appears mildly dilated. No ureteral calculus is identified. No bladder calculus is identified. There are two nonobstructive left renal calculi approximately 5 mm in diameter. There is no left hydronephrosis. The left ureter is not dilated. There is no left ureteral calculus. The uterus is markedly enlarged. There is a rounded density centrally within the uterus, possibly a clot. No intrauterine gestation is identified by CT. The visualized lung beard are unremarkable except for minor atelectasis. The unenhanced hepatic parenchyma, gallbladder, pancreas and spleen are unremarkable. The adrenals are unremarkable. The abdominal aorta, bowel and mesentery are unremarkable. Pelvis: The uterus is markedly enlarged with a focal density centrally as previously discussed. There is no ascites. No adenopathy. The pelvic bowel loops are unremarkable. The appendix is unremarkable. Impression: Right percutaneous nephrostomy. The right ureter is a mildly dilated. No right renal or ureteral calculus is identified. There are two nonobstructive left renal calculi approximate 5 mm in diameter. There is no left hydronephrosis or hydroureter. There are no bladder calculi. The uterus is markedly enlarged. There is a focal density centrally within the uterus, possibly a clot. There is no intrauterine gestation identified by CT. Half Electronically Signed by Preston Aldrich MD 10/07/2018 01:49 P
== END ==
LOC: M RAD 09:02
PROVIDERS: ATTEND Nurse Practitioner Family
DX: N20.0 Calculus of kidney (principal)

== ENCOUNTER → 2018-10-17 | Outpatient (CLI) | payer OTHER ==
--- NOTE | 2018-10-17 18:29 | REP ---
Clinical: Kidney stone. Comparison: CT dated 10/07/2018. Findings: There are evaluation for urinary tract calcifications is limited due to overlying bowel gas and technique. The two left renal calculi noted on recent CT are suspected within the left mid to lower pole. Moderate fecal stasis within the bowel suggested. No bowel obstruction. No bowel perforation. No organomegaly. Skeletal structures intact. Impression: Possible left intrarenal calculi consistent with recent CT. Evaluation is however limited due to technique and overlying bowel gas. Electronically Signed by Jae Garvin MD 10/17/2018 06:20 P
== END ==
LOC: M SMT 10:39
PROVIDERS: ATTEND Nurse Practitioner Family
DX: Z87.442 Personal history of urinary calculi (principal)

== ENCOUNTER → 2018-11-07 | Outpatient (CLI) | payer OTHER ==
--- NOTE | 2018-11-07 10:33 | REP ---
Urinary tract sonogram: History: In the stones. Comparison: CT study October 07, 2018. KUB study October 17, 2018. Findings: Scanning at the level of the urinary bladder shows no abnormality. Pre void bladder volume is calculated at 330 ml. Postvoid bladder volume is 1.2 ml (0.4% PVR). Urinary bladder rasheed are smooth. Renal cortical echogenicity pattern is normal bilaterally and contours are smooth. There is no evidence of hydronephrosis, cyst, mass, or large calculus in either kidney. The right kidney measures 11.5 x 5.4 x 4.4 cm. The previously noted right-sided pigtail catheter has been removed. Left renal dimensions are 11.4 x 5.6 x 5.3 cm. There is a small echogenic focus in the lower pole region of the left kidney which may be a for renal calculus. Impression: Possible small intrarenal calculus lower pole left kidney. The previously noted right sided nephrostomy catheter has been removed. Otherwise negative urinary tract sonography. Electronically Signed by Tho Means MD 11/07/2018 10:25 A
== END ==
LOC: M RAD 09:30
PROVIDERS: ATTEND Nurse Practitioner Family
DX: N20.0 Calculus of kidney (principal)

== ENCOUNTER 2019-05-30 12:19 | Emergency (ER) | payer OTHER ==
[~2019-05-30] VITALS: Ht 162.6 cm; Wt 79.5 kg
[2019-05-30 13:36] LABS: BASO % 0.3 % (0.0-1.0); EOS # 0.2 10^3/uL (0.0-0.5); EOS % 1.3 % (0.0-3.0); HEMATOCRIT 36.2 % (36.0-47.0); HEMOGLOBIN 12.2 g/dl (12.0-15.5); LYMPH % 15.4 % (24.0-44.0); MEAN CORPUSCULAR HEMOGLOBIN 32.2 pg (27.0-33.0); MEAN CORPUSCULAR HGB CONC 33.7 g/dl (32.0-36.5); MEAN CORPUSCULAR VOLUME 95.5 fl (80.0-96.0); MONO # 0.7 10^3/uL (0.0-0.8); MONO % 5.6 % (0.0-5.0); NEUTROPHILS # 9.9 10^3/uL (1.5-8.5); NEUTROPHILS % 76.6 % (36.0-66.0); PLATELET COUNT, AUTOMATED 227 10^3/uL (150-450); RED BLOOD COUNT 3.79 10^6/uL (4.00-5.40); WHITE BLOOD COUNT 12.9 10^3/uL (4.0-10.0)
[2019-05-30 13:54] LABS: ALBUMIN 3.1 GM/DL (3.2-5.2); ALT/SGPT 14 U/L (12-78); BILIRUBIN,DIRECT < 0.1 MG/DL (0.0-0.2); BILIRUBIN,TOTAL 0.2 MG/DL (0.2-1.0); BLOOD UREA NITROGEN 7 MG/DL (7-18); CALCIUM LEVEL 8.9 MG/DL (8.5-10.1); CARBON DIOXIDE LEVEL 24 MEQ/L (21-32); CHLORIDE LEVEL 109 MEQ/L (98-107); CREATININE FOR GFR 0.46 MG/DL (0.55-1.30); GLOMERULAR FILTRATION RATE > 60.0 (>60); GLUCOSE, FASTING 89 MG/DL (70-100); LIPASE 143 U/L (73-393); POTASSIUM SERUM 3.9 MEQ/L (3.5-5.1); SODIUM LEVEL 140 MEQ/L (136-145); TOTAL PROTEIN 6.9 GM/DL (6.4-8.2)
[2019-05-30 15:52] VITALS: BP 110/59
[2019-05-30] MEDS ORDERED: KEFL500C17 PO (16:29)
[2019-05-30] MEDS ORDERED: CEPHALEXIN 500 MG CAP PO ONE (16:30)
--- NOTE | 2019-05-30 16:44 | REP ---
REASON: Flank pain. COMPARISON: 11/07/2018 which showed a possible tiny intrarenal calculus in the lower pole of the left kidney. Today's exam shows the right kidney to measure 14.0 x 5 x 3.9 cm and the left kidney to measure 13.3 x 4.9 x 5.8 cm. The kidneys are unchanged in size, shape, and echo pattern. There are no cystic or solid masses. There is no hydronephrosis. There is no ultrasonographic evidence of an intrarenal calculus. IMPRESSION: Unremarkable renal ultrasound exam. The findings are within normal limits. Electronically Signed by Ameya Newman DO 05/30/2019 04:46 P
== END 2019-05-30 16:58 | disposition home or self-care (01) ==
LOC: M ED 12:19
DX: N39.0 Urinary tract infection, site not specified (principal); J45.909 Unspecified asthma, uncomplicated; Z33.1 Pregnant state, incidental; Z88.5 Allergy status to narcotic agent; Z91.011 Allergy to milk products; Z79.899 Other long term (current) drug therapy

== ENCOUNTER 2019-06-01 15:25 | Emergency (ER) | payer OTHER ==
[~2019-06-01] VITALS: Ht 162.6 cm; Wt 82.4 kg
[~2019-06-01 15:25] MED LIST changes: +KEFL500C17 PO
[2019-06-01] MEDS ORDERED: ALL10TAB29 PO (15:38)
[2019-06-01] MEDS ORDERED: NS 1,000 ML IV ONE (16:00)
[2019-06-01] MEDS ORDERED: ACETAMINOPHEN 325 MG TAB PO ONE (16:00)
[2019-06-01 16:24] LABS: BASO # 0.1 10^3/uL (0.0-0.2); BASO % 0.4 % (0.0-1.0); EOS # 0.2 10^3/uL (0.0-0.5); EOS % 1.5 % (0.0-3.0); HEMATOCRIT 37.6 % (36.0-47.0); HEMOGLOBIN 12.7 g/dl (12.0-15.5); LYMPH # 2.2 10^3/uL (1.5-5.0); LYMPH % 16.1 % (24.0-44.0); MEAN CORPUSCULAR HEMOGLOBIN 32.1 pg (27.0-33.0); MEAN CORPUSCULAR HGB CONC 33.8 g/dl (32.0-36.5); MEAN CORPUSCULAR VOLUME 94.9 fl (80.0-96.0); MONO # 0.9 10^3/uL (0.0-0.8); MONO % 6.3 % (0.0-5.0); NEUTROPHILS # 10.2 10^3/uL (1.5-8.5); NEUTROPHILS % 74.7 % (36.0-66.0); PLATELET COUNT, AUTOMATED 239 10^3/uL (150-450); RED BLOOD COUNT 3.96 10^6/uL (4.00-5.40); WHITE BLOOD COUNT 13.6 10^3/uL (4.0-10.0)
[2019-06-01 16:31] LABS: APPEARANCE, URINE CLEAR (CLEAR); BACTERIA, URINE AUTO NEGATIVE (NEGATIVE); BILIRUBIN, URINE AUTO NEGATIVE (NEGATIVE); BLOOD, URINE BLOOD NEGATIVE (NEGATIVE); COLOR, URINE YELLOW (YELLOW); GLUCOSE, URINE (UA) AUTO NEGATIVE (NEGATIVE); KETONE, URINE AUTO NEGATIVE (NEGATIVE); LEUKOCYTE ESTERASE, URINE AUTO NEGATIVE (NEGATIVE); MUCUS, URINE SMALL (NEGATIVE); NITRITE, URINE AUTO NEGATIVE (NEGATIVE); PROTEIN, URINE AUTO NEGATIVE (NEGATIVE); RBC, URINE AUTO 1 /HPF (0-3); SPECIFIC GRAVITY URINE AUTO 1.013 (1.002-1.035); SQUAMOUS EPITHELIAL CELL UR AU 2 /HPF (0-6); UROBILINOGEN, URINE AUTO 0.2 mg/dL (0.0-2.0); WBC, URINE AUTO 0 /HPF (0-3)
[2019-06-01 16:46] LABS: BLOOD UREA NITROGEN 5 MG/DL (7-18); CALCIUM LEVEL 8.7 MG/DL (8.5-10.1); CARBON DIOXIDE LEVEL 22 MEQ/L (21-32); CHLORIDE LEVEL 110 MEQ/L (98-107); CREATININE FOR GFR 0.38 MG/DL (0.55-1.30); GLOMERULAR FILTRATION RATE > 60.0 (>60); GLUCOSE, FASTING 77 MG/DL (70-100); POTASSIUM SERUM 4.1 MEQ/L (3.5-5.1); SODIUM LEVEL 137 MEQ/L (136-145)
[2019-06-01] MEDS ORDERED: METOCLOPRAMIDE INJ 10MG/2ML VIAL (J2765) IV ONE (17:45)
[2019-06-01] MEDS ORDERED: FIOR1CAP PO (18:51)
[2019-06-01 18:59] VITALS: BP 119/66
--- NOTE | 2019-06-02 19:37 | ECGEPIP ---
[facility] - ED Test Date: 2019-06-01 Pat Name: ILANA MILLER Department: Room: - Gender: Female Manager Regional: [place] : 1990 Requested By: TANIA SERRANO PA-C. Order Number: [id number] Reading MD: Tanna Alvarado Measurements Intervals [place] Rate: 76 P: 16 [place]: 144 QRS: 30 QRSD: 91 T: 0 QT: 401 QTc: 453 Interpretive Statements SINUS RHYTHM NONSPECIFIC ST T WAVE CHANGES NO PRIOR ECG FOR COMPARISON Electronically Signed on 06-02-2019 19:37:08 EDT by Tanna Alvarado
[2019-06-03 14:22] LABS: Lyme Disease IgG/IgM Antibodie <0.91 ISR (0.00-0.90); Lyme Disease IgM Ab Quantitati <0.80 index (0.00-0.79)
== END 2019-06-01 19:05 | disposition home or self-care (01) ==
LOC: M ED 15:25
DX: R55 Syncope and collapse (principal); Z3A.23 23 weeks gestation of pregnancy; Z79.899 Other long term (current) drug therapy; Z88.5 Allergy status to narcotic agent; E73.9 Lactose intolerance, unspecified
CPT/HCPCS: 80048; 81001; 81002; 85025; 86617; 93005; 96361; 96374; 99284; G0463; J2765

== ENCOUNTER → 2019-07-05 | Outpatient (CLI) | payer OTHER ==
[~2019-07-05] MED LIST changes: +ALL10TAB29 PO; +FIOR1CAP PO
--- NOTE | 2019-07-05 10:26 | REP ---
RENAL ULTRASOUND: Real-time sonographic evaluation of the kidneys performed. Kidneys are normal in size and echotexture, right kidney measuring 13.3 x 6.9 x 4.0 cm and left kidney 11.7 x 5.1 x 7.3 cm. There is no renal mass or hydronephrosis. Patient is and the heart rate is 139 beats per minute. IMPRESSION: Negative renal ultrasound. Electronically Signed by Preston Jenkins MD 07/06/2019 11:16 A
== END ==
LOC: M RAD 08:58
PROVIDERS: ATTEND Advanced Practice Midwife
DX: Z34.80 Encounter for supervision of other normal pregnancy, unspecified trimester (principal); M54.5 Low back pain

== ENCOUNTER → 2019-07-20 | Outpatient (CLI) | payer OTHER ==
[2019-07-20 17:24] LABS: GLUCOSE CHALLENGE TEST 1 HOUR 136 MG/DL (LESS THAN 140)
[2019-07-20 17:28] LABS: BASO % 0.2 % (0.0-1.0); EOS # 0.2 10^3/uL (0.0-0.5); EOS % 1.9 % (0.0-3.0); HEMATOCRIT 36.8 % (36.0-47.0); HEMOGLOBIN 12.2 g/dl (12.0-15.5); LYMPH # 1.6 10^3/uL (1.5-5.0); LYMPH % 15.6 % (24.0-44.0); MEAN CORPUSCULAR HEMOGLOBIN 31.5 pg (27.0-33.0); MEAN CORPUSCULAR HGB CONC 33.2 g/dl (32.0-36.5); MEAN CORPUSCULAR VOLUME 95.1 fl (80.0-96.0); MONO # 0.6 10^3/uL (0.0-0.8); MONO % 6.3 % (0.0-5.0); NEUTROPHILS # 7.6 10^3/uL (1.5-8.5); NEUTROPHILS % 75.1 % (36.0-66.0); PLATELET COUNT, AUTOMATED 203 10^3/uL (150-450); RED BLOOD COUNT 3.87 10^6/uL (4.00-5.40); WHITE BLOOD COUNT 10.1 10^3/uL (4.0-10.0)
[2019-07-20 20:30] LABS: CHLAMYDIA DNA AMPLIFICATION NEGATIVE (NEGATIVE); GC DNA AMPLIFICATION NEGATIVE (NEGATIVE)
[2019-07-21 11:03] LABS: RUBELLA IgG QUALITATIVE IMMUNE (IMMUNE)
[2019-07-21 11:32] LABS: HEPATITIS C VIRUS ABY INDEX 0.1 INDEX (<0.8); HIV 1&2 SCREEN CENTAUR NEGATIVE (NEGATIVE)
== END ==
LOC: M LRY 12:38
PROVIDERS: ATTEND Advanced Practice Midwife
DX: Z34.83 Encounter for supervision of other normal pregnancy, third trimester (principal)
CPT/HCPCS: 36415; 82950; 85025; 86762; 86780; 86803; 86850; 87086; 87340; 87389; 87491; 87591; J2790

== ENCOUNTER → 2019-08-03 | Outpatient (CLI) | payer OTHER ==
--- NOTE | 2019-08-03 19:09 | REP ---
Obstetric sonography: History: Supervision of , followup anatomy, face, outflow tracts and growth study. Findings: Scanning through the gravid uterus demonstrates a viable single intrauterine gestation in a cephalic lie. motion is observed and heart rate is recorded at 128 beats per minute. Placenta is anterior, grade 2, without evidence of previa or abruption. Amniotic fluid is subjectively normal. Closed cervical length is 3.9 cm. No extrauterine abnormalities observed. No anomaly is seen. The left and right ventricular cardiac outflow tract views are less than optimally seen today due to position. The following additional anatomic structures are identified and felt to be sonographically unremarkable: cranium, cavum, cerebellum and posterior fossa, face and profile, lungs, four-chamber heart, diaphragm, left-sided stomach, abdominal wall cord insertion, three-vessel umbilical cord, kidneys and bladder, spine, upper and lower extremities. Biometry chart: BPD 8.4 cm = 33 weeks 4 days HC 30.5 cm = 34 weeks 0 days AC 29.4 cm = 33 weeks 3 days FL 6.4 cm = 33 weeks 0 days HL 5.4 cm = 31 weeks 2 days CD 4.0 cm = 32 weeks 0 days HC/AC ratio normal 1.04. Cephalic index normal 0.77. Estimated weight 2181 grams/4 pounds 12 ounces/50th percentile for 33 weeks 1 day. EMMY normal 19.6 cm. Closed cervical length 3.9 cm. S/D ratio normal 2.88. Impression: Viable single intrauterine gestation at 33 weeks 1 day by today's composite sonographic criteria. Expected gestational age estimate by previous sonography 33 weeks 1 day, [place] by prior sonography September 20, 2019. Electronically Signed by Tho Means MD 08/03/2019 05:37 P
== END ==
LOC: M LRY 13:57
PROVIDERS: ATTEND Advanced Practice Midwife
DX: Z36.2 Encounter for other antenatal screening follow-up (principal)

== ENCOUNTER → 2019-08-29 | Outpatient (REF) | payer OTHER ==
[~2019-08-29] MED LIST changes: +ONDA-83 PO; -ONDA4TAB5 PO
== END ==
LOC: M SFHCWAGY 16:50
PROVIDERS: ATTEND Advanced Practice Midwife
DX: Z36.85 Encounter for antenatal screening for Streptococcus B (principal)

== ENCOUNTER → 2019-09-01 | Outpatient (REF) | payer OTHER | LOC: M PLALAB 15:14 | PROVIDERS: ATTEND Advanced Practice Midwife | DX: Z34.83 Encounter for supervision of other normal pregnancy, third trimester (principal) ==

== ENCOUNTER → 2019-09-06 | Outpatient (CLI) | payer OTHER ==
--- NOTE | 2019-09-07 02:22 | REP ---
Clinical: Growth evaluation. Comparison: 09/04/2019 . Findings: Examination demonstrates a single live intrauterine in cephalic presentation. motion is identified by technologist. Placenta is noted anterior and grade I I I without evidence for placenta previa or abruption. Amniotic fluid volume is normal. Cervix measures 2.6 cm in length and appears closed. No evidence for nuchal cord. Gestational age by first US 38 weeks 0 days with DAYTON 09/20/2019 . FHR equals 139 beats per minute. Estimated weight 2912 grams ( 32nd percentile based on age by first ultrasound ). Biophysical profile score: 8/8 Amniotic fluid index: 16.7 cm Impression: single live advanced gestation in cephalic presentation.
== END ==
LOC: M WHC 14:46
PROVIDERS: ATTEND Advanced Practice Midwife
DX: Z36.2 Encounter for other antenatal screening follow-up (principal); Z36.87 Encounter for antenatal screening for uncertain dates; O36.8390 Maternal care for abnormalities of the fetal heart rate or rhythm, unspecified trimester, not applicable or unspecified; O26.849 Uterine size-date discrepancy, unspecified trimester; Z3A.38 38 weeks gestation of pregnancy

== ENCOUNTER 2019-09-14 22:03 | Outpatient (CLI) | payer OTHER ==
[~2019-09-14] VITALS: Ht 165.1 cm; Wt 92.7 kg
[2019-09-14 22:24] VITALS: BP 107/67
== END 2019-09-15 00:45 | disposition home or self-care (01) ==
LOC: M LDO 22:03
PROVIDERS: ATTEND Obstetrics & Gynecology
DX: O26.893 Other specified pregnancy related conditions, third trimester (principal); O47.1 False labor at or after 37 completed weeks of gestation; Z3A.38 38 weeks gestation of pregnancy
CPT/HCPCS: 59025; G0463

== ENCOUNTER 2019-09-22 07:23 | Inpatient (IN) | payer OTHER ==
[~2019-09-22] VITALS: Ht 165.1 cm; Wt 92.7 kg
[2019-09-22] VITALS (49 sets, daily range): BP systolic 88–186; BP diastolic 50–118
[2019-09-22] MEDS ORDERED: PENICILLIN G POTASSIUM IV 5 MU in D5W MINI-BAG PLUS 100 ML IV STA (08:35)
[2019-09-22] MEDS ORDERED: LACTATED RINGER'S 1000 ML IV STA (08:35)
[2019-09-22] MEDS ORDERED: OXYTOCIN DRIP 30 UNITS in IV 1 EA IV SCH ×2 (08:45→18:08)
[2019-09-22 08:56] LABS: HEMATOCRIT 39.6 % (36.0-47.0); HEMOGLOBIN 12.8 g/dl (12.0-15.5); MEAN CORPUSCULAR HEMOGLOBIN 30.8 pg (27.0-33.0); MEAN CORPUSCULAR HGB CONC 32.3 g/dl (32.0-36.5); MEAN CORPUSCULAR VOLUME 95.2 fl (80.0-96.0); PLATELET COUNT, AUTOMATED 192 10^3/uL (150-450); RED BLOOD COUNT 4.16 10^6/uL (4.00-5.40); WHITE BLOOD COUNT 10.4 10^3/uL (4.0-10.0)
[2019-09-22] MEDS: LR 1,000 ML IV SCH ×3 (09:08→15:48)
--- NOTE | 2019-09-22 09:45 | HPEPDOC ---
Obstetrical History & Physical General Date of Admission Sep 22, 2019 at 07:23 Primary Care Physician: Yasmine Gracia CNM History of Present Illness Chief Complaint: Induction of labor, Group B Positive Information Provided By: Patient Age: 29 : 5 Term: 2 Pre-term: 1 Abortions: 1 Livin Care Care: Good Care Dating Final EDC: Sep 28, 2019 Final EDC by: LMP LMP: December 22, 2018 1st Trimester Date: Mar 31, 2019 EGA at Admission: 39.1 Antepartum Course Diagnos(e)s SIUP at 39.1 wk, elective induction of labor Height (inches): 65 Pre- weight (lbs.): 160 Admission Weight (lbs.): 204 Past Medical History Past Obstetrical History #1: Past Obstetrical History: Primgravida Date of Delivery: Sep 24, 2012 Gestation: 40 Type of Delivery: Spontaneous Vaginal Del. Sex of Infant: Male Weight of Infant (grams): 3629 Complications: No Past Obstetrical History #2: Past Obstetrical History: Multigravida Date of Delivery: Oct 26, 2016 Gestation: 36 Type of Delivery: Spontaneous Vaginal Del. Sex of Infant: Male Weight of Infant (grams): 3884 Complications: Yes (PPROM) Past Obstetrical History #3: Past Obstetrical History: Multigravida Date of Delivery: Oct 03, 2018 Gestation: 37 Type of Delivery: Spontaneous Vaginal Del. Sex of : Female Weight of (grams): 3884 Complications: Yes (nephrostomy tube) SHANKER OUT History: Spontaneous , History of STD (chlamydia) Past Medical History Medical History kidney stones, asthma, hydronephrosis, chronic back pain Surgical History: Other (nephrostomy tube, dental) Family History Significant Family History: Hypertension, Seizures Social History Marital Status: Family situation: Spouse/partner home Psychosocial History: No pertinent psych hx * Smoker: non-smoker Alcohol: Denies Drugs: denies Abuse Violence Screening Have you been hit/kicked/slapp: No Have you been sexually assault: No Allergies Coded Allergies: codeine (Verified Adverse Reaction, Intermediate, dizzy, vomiting., 05/30/19) lactose (Verified Adverse Reaction, Intermediate, gi upset., 05/30/19) Medications Scheduled Cetirizine HCl (Cetirizine HCl) 10 Mg Tablet, 1 TAB PO DAILY for allergy symptoms Montelukast Sodium (Singulair) 10 Mg Tab, 10 MG PO DAILY Vit No.124/Iron/Folic ( Vitamin Tablet) 1 Tab Tab, 1 TAB PO DAILY Miscellaneous Medications Albuterol Sulfate (Proair Hfa) 108 Mcg/Act Aer Physical Examination Physical Examination GENERAL: Alert and oriented times three. BREAST: . ABDOMEN: Gravid and non-tender to touch. FETUS: Is vertex (VTX) by sterile vaginal examination (SVE), fetus is vertex (VTX) by Benoit. HEART RATE: Regular rate and rhythm. LUNGS: Clear to auscultation (CTA). EXTREMITIES: No edema. No clonus. Deep tendon reflexes (DTRs) + 2. Vital Signs/I&O Vital Signs Date Time Temp Pulse Resp B/P (MAP) Pulse Ox O2 Delivery O2 Flow Rate FiO2 09/22/19 07:56 98.1 102 18 124/71 (88) Laboratory Data 24H LABS Laboratory Tests 2 09/22/19 07:30: Serology Scanned Report Hepatitis B Testing 09/22/19 08:18: Nucleated Red Blood Cells % (auto) 0.0 CBC/BMP Laboratory Tests 09/22/19 08:18 Pertinent Laboratoy Data Blood Type: A- RBC Antibody Screen: Negative HIV: Negative Hepatitis B: Negative Hepatitis C: Negative Rapid Plasma Reagin: Nonreactive Rubella: Immune Chlamydia/Gonorrhea: Negative Group B Streptococcus: Positive Glucose Tolerance Test: 136 (did glucose monitoring; negative for GDM) Anatomy Ultrasound Ultrasound Date: May 11, 2019 Placenta Location: Anterior Normal Anatomy: Yes (RVOT and nose/lips not well visualized) Placenta Previa: No Estimated Weight (grams): 283 Other Ultrasounds 03/31/19-SIUP at 13.6wk, anterior placenta 05/11/1996-smsbbmm-MPLU, anterior placenta, EFW 293g (48%); RVOT and nose/lips not well visualized 08/03/2019 - f/u anatomy. Face and profile seen. Outflow tracts not well seen Steroid Therapy Steroid Therapy: No Vaginal Examination Dilation: 4 cm Effacement: 80% Station: -3 Cervical Consistency: Soft Cervical Position: Posterior Presentation: Cephalic presentation Position: Vertex (occiput) Assessment Heart Rate (FHR): 130 Variability: Moderate Accelerations: Positive Decelerations: None Tocometer Contractions: Yes Frequency: irregular, every 1-5 min. Strength: palpated as mild Assessment/Plan Assessment Rissa Acosta is a 29-year-old at 39.1 wk gestation based on LMP and confirmed with early second trimester ultrasound. Care was initiated at 13 wk. [place] 09/28/2019. has been complicated by GBS positive state and Rh negative state. Desires tubal ligation . Patient presented to labor and delivery for elective induction of labor. She reports positive movement, denies leakage of fluid or vaginal bleeding. Patient reports intermittent mild contractions. FHR category 1. Plan Admit to labor and delivery. Diet: clear. Group B Streptococcus (GBS) positive. Treat with antibiotics. Labs and intravenous (IV) per unit protocol. Counseled on Pitocin for induction of labor (IOL). Lactated Ringers (LR): Bolus 500 mL, then at 125 mL/hr. Up ad brianda. Anesthesia consult per patient request. Anticipate cervical ripening and cervical change. Anticipate normal spontaneous delivery (). C-S as appropriate. Yasmine Gracia CNM Sep 22, 2019 09:45
[2019-09-22] MEDS ORDERED: PENICILLIN G POTASSIUM IV 2.5 MU in IV 1 EA IV SCH (13:00)
[2019-09-22] MEDS ORDERED: FENTANYL 2MCG/ML ROPIVACAINE 0.2% IN 0.9% NACL 100ML IVBAG As Ordered ONE (13:49)
[2019-09-22] MEDS ORDERED: diphenhydrAMINE INJ 50MG/ML VIAL (J1200) IV PRN (14:05)
[2019-09-22] MEDS ORDERED: REFRIGERATOR IV KEYS XX PRN (14:05)
[2019-09-22] MEDS ORDERED: NALOXONE INJ 0.4 MG/1 ML VIAL (J2310) IV PRN (14:05)
[2019-09-22] MEDS ORDERED: EPIDURAL/PCA KEYS XX PRN (14:05)
[2019-09-22] MEDS ORDERED: EPIDURAL COMMENT XX SCH (14:05)
[2019-09-22] MEDS ORDERED: ONDANSETRON 4MG/2ML VIAL (J2405) IV PRN (14:05)
[2019-09-22] MEDS ORDERED: LACTATED RINGER'S 1000 ML IV PRN (14:05)
[2019-09-22] MEDS ORDERED: FENTANYL/ROPIVACAINE/NACL BAG 100 ML EPIDURAL SCH (14:05)
--- NOTE | 2019-09-22 15:58 | IPNPDOC ---
Text Note Date of Service The patient was seen on 09/22/19. NOTE Progress Remains uncomfortable despite epidural. Bolus requested SROM @ 1507 clear fluid shortly after epidural Pitocin currently @ 12mu UC 1-3 minutes apart x 60 seconds. Pitocin reduced to 6mu SVE by nursing post epidural 7cm Anticipate NSVB VS,Fishbone, I+O VS, Fishbone, I+O Laboratory Tests 09/22/19 08:18 Vital Signs Date Time Temp Pulse Resp B/P (MAP) Pulse Ox O2 Delivery O2 Flow Rate FiO2 09/22/19 11:05 97.5 78 18 115/73 (87) Yasmine Gracia CNM Sep 22, 2019 15:58
[2019-09-22] MEDS: ePHEDrine SULFATE 25 MG/5 ML(5MG/ML) SYRINGE IV PRN ×3 (16:19→16:34)
[2019-09-22] MEDS ORDERED: MEASLES,MUMPS,RUBELLA VACCINE INJ (MMR-II) (90707) SC SCH (18:00)
[2019-09-22] MEDS ORDERED: MOM 30ML SUSPENSION UDC PO PRN (18:00)
[2019-09-22] MEDS ORDERED: ANUSOL HC CREAM 30GM TOP PRN (18:00)
[2019-09-22] MEDS ORDERED: DIBUCAINE 1% OINTMENT 30GM TOP PRN (18:00)
[2019-09-22] MEDS ORDERED: IBUPROFEN 600 MG TAB PO PRN (18:00)
[2019-09-22] MEDS ORDERED: RHOGAM 300 MCG (1500 IU) INJ (J2790) IM SCH (18:00)
[2019-09-22] MEDS ORDERED: ACETAMINOPHEN 500 MG TAB PO PRN (18:00)
[2019-09-22] MEDS ORDERED: METHYLERGONOVINE MALEATE 0.2 MG TAB PO PRN (18:00)
[2019-09-22] MEDS ORDERED: ACETAMINOPHEN TAB 650MG DOSE (2X325MG) PO PRN (18:00)
--- NOTE | 2019-09-22 18:11 | DNPDOC ---
[facility] Delivery Note Delivery Note DATE OF DELIVERY: 09/22/2019 at 1733 PREDELIVERY DIAGNOSIS: 39-1/7 weeks' gestation and labor. POST DELIVERY DIAGNOSIS: Delivered. PROCEDURE: Spontaneous vaginal delivery. PROVIDER: Dorie Arizmendi, Student Nurse-Psychological Tests Sales Agent assisted by Yasmine Gracia CNM ANESTHESIA: Epidural. ESTIMATED BLOOD LOSS: 300 mL. FINDINGS: 8 pound 11 ounce (3930g) male , Score 8/9, tight nuchal cord times x1 and wrapped around body and leg x1. DELIVERY SUMMARY: Patient is a 29-year-old 5 now para 3-1-1-4 who was admitted to labor and delivery for elective induction of labor. She received an epidural for pain management. Labor was induced by IV Pitocin. SROM of clear fluid at 1506. The patient progressed to fully dilated at 1722 and pushed to a living male in the OA position with restitution to ROT at 1733. A tight nuchal was noted. The anterior shoulder delivered with ease and the corpus immediately followed using somersault maneuvers. The umbilical cord was also wrapped around the body and leg. The baby was placed on the maternal abdomen, [id number], active and crying. The cord was clamped times 2 after pulsation ceased and cut by the FOB. A 3-vessel cord was noted. The placenta delivered spontaneously and intact at 1739. Uterine hemostasis was achieved via rapid infusion of IV Pitocin at 999 ml/hr for 30 units in 500 ml of NS and fundal massage. The vagina, cervix and perineum were inspected and no lacerations were noted. Mom plans to breastfeed and formula feed. Both mom and baby are in stable condition. All counts of instruments and sponges are correct. Yasmine Gracai CNM Sep 22, 2019 18:11
[2019-09-22] MEDS ORDERED: METHYLERGONOVINE MALEATE 0.2 MG/ML VIAL (J2210) IM STA (18:32)
[2019-09-22] MEDS ORDERED: METHYLERGONOVINE MALEATE 0.2 MG/ML VIAL (J2210) As Ordered ONE (18:34)
[2019-09-22] MEDS ORDERED: SLF 3 ML SYR IV PRN (20:15)
[2019-09-22] MEDS: SLF 3 ML SYR IV SCH (21:26)
[2019-09-22] MEDS: DOCUSATE SODIUM 100 MG CAP PO PRN (23:56)
[2019-09-22] MEDS: METHYLERGONOVINE MALEATE 0.2 MG TAB PO SCH (23:57)
[2019-09-23 06:17] VITALS: BP 108/57
[2019-09-23] MEDS: METHYLERGONOVINE MALEATE 0.2 MG TAB PO SCH ×3 (06:33→18:11)
[2019-09-23] MEDS: SLF 3 ML SYR IV SCH ×2 (06:33→13:23)
--- NOTE | 2019-09-23 06:59 | IPNPDOC ---
Text Note Date of Service The patient was seen on 09/23/19. NOTE #1 S: Patient reports her pain is controlled, she is ambulating and voiding without difficulty. Tolerating PO intake well. Establishing . Vaginal bleeding is minimal. O: Alert and oriented, breasts non-tender. Fundus is firm at U-1, small amount of bleeding. Trace peripheral edema. A: day #1, establishing P: Routine care. Plan for discharge tomorrow. support. Encourage adequate PO intake. Tylenol and Ibuprofen as needed for pain. VS,Fishbone, I+O VS, Fishbone, I+O Laboratory Tests 09/22/19 08:18 Vital Signs Date Time Temp Pulse Resp B/P (MAP) Pulse Ox O2 Delivery O2 Flow Rate FiO2 09/23/19 06:17 97.1 83 18 108/57 (74) 09/22/19 21:29 98 I&O- Last 24 Hours up to 6 AM 09/23/19 06:00 Intake Total 7481.6 ml Output Total 1950 ml Balance 5531.6 ml Yasmine Gracia CNM Sep 23, 2019 06:59
[2019-09-23] MEDS: PRENATAL VITAMINS CHEWABLE TABLET PO SCH (08:20)
[2019-09-23] MEDS: IBUPROFEN 800 MG TAB PO PRN ×3 (08:42→20:25)
[2019-09-23 18:00] VITALS: BP 102/69
[2019-09-23] MEDS: DOCUSATE SODIUM 100 MG CAP PO PRN (20:29)
[2019-09-24] MEDS ORDERED: METHYLERGONOVINE MALEATE 0.2 MG TAB PO PRN (00:30)
[2019-09-24 06:00] VITALS: BP 116/70
[2019-09-24] MEDS: PRENATAL VITAMINS CHEWABLE TABLET PO SCH (08:31)
== END 2019-09-24 12:55 | disposition home or self-care (01) | DRG 807 ==
LOC: M LDI 07:23 → M OBS 20:53
PROVIDERS: ADMIT Advanced Practice Midwife; ATTEND Advanced Practice Midwife
PROC: 10E0XZZ Delivery of Products of Conception, External Approach (ICD-10-PCS; principal; 2019-09-22)
PROC: 3E033VJ Introduction of Other Hormone into Peripheral Vein, Percutaneous Approach (ICD-10-PCS; 2019-09-22)
DX: O99.52 Diseases of the respiratory system complicating childbirth (principal); Z37.0 Single live birth; O99.824 Streptococcus B carrier state complicating childbirth; Z3A.39 39 weeks gestation of pregnancy; O69.2XX0 Labor and delivery complicated by other cord entanglement, with compression, not applicable or unspecified; J45.909 Unspecified asthma, uncomplicated

== ENCOUNTER → 2020-01-02 | Outpatient (REF) | payer OTHER | LOC: M SFHCWAGY 16:42 | PROVIDERS: ATTEND Advanced Practice Midwife | DX: Z01.419 Encounter for gynecological examination (general) (routine) without abnormal findings (principal); Z12.4 Encounter for screening for malignant neoplasm of cervix | CPT/HCPCS: 87624; G0123; G0463 ==

== ENCOUNTER → 2020-01-26 | Outpatient (REF) | payer OTHER | LOC: M SFHCWAGY 18:04 | PROVIDERS: ATTEND Obstetrics & Gynecology | DX: R87.619 Unspecified abnormal cytological findings in specimens from cervix uteri (principal) ==